=== PATIENT | male | born 1930 | race Caucasian/White ===

== ENCOUNTER 2016-11-19 11:44 | Emergency (ER) | payer MEDICARE, OTHER ==
[~2016-11-19] VITALS: Ht 172.7 cm; Wt 81.6 kg
[~2016-11-19 11:44] MED LIST: ACETAMINOPHEN PO; ALBUTEROL0.09 MG/A2 IH; ALBUTEROL0.09 MG/AC; ALLEGRA ALLERG180 M1 PO; AMIODARONE HCL400 MG PO; AMIODARONE200 MG PO; AMLODIPINE5 MG PO; AMOXICILLIN500 M2 PO; ASA; ASPIRIN81 M1 PO; CALCITRIOL0.25 MCG; CALCITRIOL0.25 MCG SL; CARDIZEM CD120 MG PO; CARDIZEM CD180 MG PO; CEPACOL MM; CLARITIN10 MG PO; CLINORIL200 MG PO; COUMADIN5 M2 PO; COZAAR25 MG PO; Carafate1 GM/10 ML PO; DELTASONE20 MG PO; DILTIAZEM120 MG; FLAGYL500 MG PO; FUROSEMIDE40 MG; HUMALOG100 U/ML SC; HUMULIN 70/30 703 M1 SC; HYDRALAZINE10 MG; HYDRALAZINE10 MG PO; IMDUR30 MG PO; IMDUR60 MG PO; IRON325 M1 PO; ISOSORBIDE MONO60 MG; KLOR-CON 88 MEQ; LASIX40 MG PO; LISINOPRIL10 MG PO; LOTRISONE30 ML PO; MEDROL DOSEPAK4 MG PO; METOPROLOL SUCC50 MG PO; MICRO-K EXTENCA8 MEQ PO; MYLANTA 150 ML150 M1 PO; NEURONTIN300 MG PO; NIFEREX150 MG PO; NITROSTAT0.4 MG PO; NITROTAB0.4 MG SL; NORVASC5 MG PO; NOVOLIN 70/30 710 ML SC; NOVOLOG 70/30 M10 ML SC; NOVOLOG 701 UNIT/0.0 SC; NOVOLOG MIX 70/10 ML SC; OMEPRAZOLE20 MG PO; OMNICEF300 MG PO; ONDANSETRON4 MG PO; OXYGEN NAS; PANTOPRAZOLE40 M1 PO; PERCOCET 325 MG1 TA2 PO; PERCOCET 325 MG1 TA5 PO; PLAVIX75 MG PO; PRAVACHOL40 MG PO; PRAVASTATIN SOD40 MG; PRAVASTATIN SOD40 MG PO; PRAZOSIN HCL2 MG PO; PRILOSEC40 MG PO; PROAIR HFA0.09 MG/AC INH; PROTONIX40 M1 PO; PROTONIX40 MG PO; Rocaltrol0.25 MCG PO; TOPROL XL25 MG PO; TOPROL XL50 MG PO; ULTRAM50 MG PO; WALKER; XANAX0.25 MG PO; ZOFRAN ODT4 MG SL; ZOLPIDEM10 MG PO; [UNRECOGNIZED DRUG - OTHER]; [UNRECOGNIZED DRUG - OTHER]
[2016-11-19 11:48] VITALS: BP 210/94
[2016-11-19 12:15] LABS: BASO % 0.3 % (0.0-1.0); HEMATOCRIT 36.6 % (42.0-52.0); HEMOGLOBIN 12.3 g/dl (14.0-18.0); IG # 0.1 10*3/uL (0.0-0.1); LYMPH # 0.5 10*3/uL (1.3-4.4); LYMPH % 3.7 % (27.0-41.0); MEAN CELL VOLUME 92.4 fl (80.0-94.0); MEAN CORPUSCULAR HGB 31.1 pg (27.0-31.0); MEAN CORPUSCULAR HGB CONC 33.6 g/dl (33.0-37.0); MEAN PLATELET VOLUME 9.9 fl (9.6-12.3); MONO # 1.2 10*3/uL (0.1-1.0); MONO % 8.4 % (3.0-9.0); NEUT # 12.8 10*3/uL (2.3-7.9); NEUT % 87.2 % (47.0-73.0); PLATELET COUNT AUTOMATED 204 10*3/uL (130-400); RED BLOOD COUNT 3.96 10*6/uL (4.50-5.90); RED CELL DISTRI WIDTH 15.2 % (0-14.5); WHITE BLOOD COUNT 14.6 10*3/uL (4.8-10.8)
[2016-11-19 12:28] LABS: POTASSIUM 4.5 mmol/L (3.5-5.1)
[2016-11-19 13:13] VITALS: BP 180/120
[2016-11-19 13:26] LABS: ALBUMIN 3.9 gm/dl (3.1-4.5); BILIRUBIN, TOTAL 1.4 mg/dl (0.2-1.0); POTASSIUM 4.3 mmol/L (3.5-5.1); TOTAL PROTEIN 7.5 gm/dL (6.4-8.2)
[2016-11-19 13:34] LABS: THYROID STIM HORMONE (HS) 1.35 uIU/ml (0.358-4.75)
[2016-11-19 14:38] VITALS: BP 166/97
[2016-11-19 14:51] VITALS: BP 174/71
[2016-11-19 14:58] LABS: BILIRUBIN NEGATIVE (NEGATIVE); BLOOD 2+ (NEGATIVE); CLARITY SL CLOUDY (CLEAR); COLOR YELLOW (YELLOW); GLUCOSE 1+ (NEGATIVE); KETONE NEGATIVE (NEGATIVE); LEUKO ESTERASE NEGATIVE (NEGATIVE); NITRITE NEGATIVE (NEGATIVE); PH 5.5 (5.0-9.0); PROTEIN 2+ (NEGATIVE); SPECIFIC GRAVITY 1.025 (1.005-1.030); UROBILINOGEN 0.2 E.U./dl (0.2-1.0)
[2016-11-19 15:05] LABS: BACTERIA 1+; RBC 21-30 rbc/hpf (0-2); URINE REFLEX COMMENT YES (NO)
[2016-11-19 15:08] VITALS: BP 149/60
== END 2016-11-19 15:30 | disposition short-term general hospital (02) ==
LOC: ED 11:44 → EDHOLD 14:12 → ED 14:12
PROVIDERS: Emergency Medicine
DX: A41.9 Sepsis, unspecified organism (principal); R41.0 Disorientation, unspecified; E16.2 Hypoglycemia, unspecified; Z90.49 Acquired absence of other specified parts of digestive tract; Z95.5 Presence of coronary angioplasty implant and graft; I12.9 Hypertensive chronic kidney disease with stage 1 through stage 4 chronic kidney disease, or unspecified chronic kidney disease; N18.3 Chronic kidney disease, stage 3 (moderate); J44.9 Chronic obstructive pulmonary disease, unspecified; Z86.73 Personal history of transient ischemic attack (TIA), and cerebral infarction without residual deficits; E11.649 Type 2 diabetes mellitus with hypoglycemia without coma; I48.91 Unspecified atrial fibrillation; I50.9 Heart failure, unspecified; Z79.82 Long term (current) use of aspirin

== ENCOUNTER 2016-12-25 11:15 | Emergency (ER) | payer MEDICARE, OTHER ==
[~2016-12-25] VITALS: Ht 172.7 cm; Wt 75.7 kg
[2016-12-25 12:15] LABS: BASO # 0.1 10*3/uL (0.0-0.1); BASO % 0.8 % (0.0-1.0); EOS # 0.2 10*3/uL (0.0-0.4); EOS % 3.8 % (1.0-4.0); HEMATOCRIT 32.7 % (42.0-52.0); HEMOGLOBIN 10.2 g/dl (14.0-18.0); IG # 0.1 10*3/uL (0.0-0.1); LYMPH # 0.8 10*3/uL (1.3-4.4); LYMPH % 12.7 % (27.0-41.0); MEAN CORPUSCULAR HGB 30.3 pg (27.0-31.0); MEAN CORPUSCULAR HGB CONC 31.2 g/dl (33.0-37.0); MEAN PLATELET VOLUME 9.7 fl (9.6-12.3); MONO # 0.7 10*3/uL (0.1-1.0); MONO % 11.5 % (3.0-9.0); NEUT # 4.5 10*3/uL (2.3-7.9); NEUT % 70.1 % (47.0-73.0); PLATELET COUNT AUTOMATED 212 10*3/uL (130-400); RED BLOOD COUNT 3.37 10*6/uL (4.50-5.90); RED CELL DISTRI WIDTH 15.9 % (0-14.5); WHITE BLOOD COUNT 6.4 10*3/uL (4.8-10.8)
[2016-12-25 12:22] LABS: INTERNATIONAL NORM RATIO 1.1 (2.0-3.5); PROTHROMBIN TIME 11.2 SECONDS (9.0-12.4)
[2016-12-25 12:30] LABS: ALBUMIN 3.1 gm/dl (3.1-4.5); BILIRUBIN, TOTAL 0.3 mg/dl (0.2-1.0); MAGNESIUM 1.9 mg/dL (1.5-2.1); POTASSIUM 5.4 mmol/L (3.5-5.1); TOTAL PROTEIN 6.5 gm/dL (6.4-8.2)
[2016-12-25 12:34] LABS: TROPONIN I 0.179 ng/ml (<0.045)
== END 2016-12-25 16:43 | disposition short-term general hospital (02) ==
LOC: ED 11:15
PROVIDERS: Nurse Practitioner Family
DX: J44.1 Chronic obstructive pulmonary disease with (acute) exacerbation (principal); N17.9 Acute kidney failure, unspecified; E87.5 Hyperkalemia; I48.91 Unspecified atrial fibrillation; N18.3 Chronic kidney disease, stage 3 (moderate); E11.9 Type 2 diabetes mellitus without complications; D64.9 Anemia, unspecified; Z98.42 Cataract extraction status, left eye; Z98.41 Cataract extraction status, right eye; Z90.49 Acquired absence of other specified parts of digestive tract; Z86.73 Personal history of transient ischemic attack (TIA), and cerebral infarction without residual deficits; Z95.5 Presence of coronary angioplasty implant and graft; Z79.82 Long term (current) use of aspirin; Z79.899 Other long term (current) drug therapy; Z99.81 Dependence on supplemental oxygen; Z88.2 Allergy status to sulfonamides

== ENCOUNTER 2017-01-16 12:44 | Inpatient (IN) | payer MEDICARE, OTHER ==
[~2017-01-16] VITALS: Ht 172.7 cm; Wt 77.4 kg
[2017-01-16 12:45] VITALS: BP 119/66
[2017-01-16 12:50] VITALS: BP 119/66
[2017-01-16 13:15] LABS: BASO % 0.4 % (0.0-1.0); EOS # 0.1 10*3/uL (0.0-0.4); EOS % 1.1 % (1.0-4.0); HEMATOCRIT 36.5 % (42.0-52.0); HEMOGLOBIN 11.7 g/dl (14.0-18.0); IG # 0.1 10*3/uL (0.0-0.1); LYMPH # 0.7 10*3/uL (1.3-4.4); LYMPH % 8.9 % (27.0-41.0); MEAN CELL VOLUME 94.3 fl (80.0-94.0); MEAN CORPUSCULAR HGB 30.2 pg (27.0-31.0); MEAN CORPUSCULAR HGB CONC 32.1 g/dl (33.0-37.0); MEAN PLATELET VOLUME 9.5 fl (9.6-12.3); MONO % 12.4 % (3.0-9.0); NEUT % 76.6 % (47.0-73.0); PLATELET COUNT AUTOMATED 225 10*3/uL (130-400); RED BLOOD COUNT 3.87 10*6/uL (4.50-5.90); RED CELL DISTRI WIDTH 15.2 % (0-14.5); WHITE BLOOD COUNT 7.9 10*3/uL (4.8-10.8)
[2017-01-16 13:25] LABS: PROTHROMBIN TIME 10.8 SECONDS (9.0-12.4)
[2017-01-16 13:34] LABS: ALBUMIN 3.2 gm/dl (3.1-4.5); ALKALINE PHOSPHATASE 115 U/L (45-117); BILIRUBIN, TOTAL 0.6 mg/dl (0.2-1.0); BUN 18 mg/dl (7-24); C-REACTIVE PROTEIN 4.65 MG/DL (0-0.3); CARBON DIOXIDE 29 mmol/L (21-32); CHLORIDE 105 mmol/L (98-107); CKMB 1.6 ng/ml (0.5-3.6); CPK 137 U/L (39-308); EST GLOM FILT AFRICAN AMERICAN 58 ml/min; GLUCOSE 60 mg/dL (65-99); POTASSIUM 4.4 mmol/L (3.5-5.1); SGOT/AST 24 IU/L (3-35); SGPT/ALT 17 U/L (12-78); SODIUM 140 mmol/L (136-145); TOTAL PROTEIN 6.7 gm/dL (6.4-8.2)
[2017-01-16 13:35] LABS: TROPONIN I < 0.015 ng/ml (<0.045)
[2017-01-16 15:24] LABS: BILIRUBIN NEGATIVE (NEGATIVE); BLOOD 1+ (NEGATIVE); CLARITY SL CLOUDY (CLEAR); COLOR YELLOW (YELLOW); GLUCOSE NEGATIVE (NEGATIVE); KETONE NEGATIVE (NEGATIVE); LEUKO ESTERASE 1+ (NEGATIVE); NITRITE NEGATIVE (NEGATIVE); PH 5.5 (5.0-9.0); PROTEIN 1+ (NEGATIVE); SPECIFIC GRAVITY <= 1.005 (1.005-1.030)
[2017-01-16] MEDS ORDERED: CLOPIDOGREL75 MG PO (15:25)
[2017-01-16 15:39] LABS: BACTERIA 1+; URINE REFLEX COMMENT YES (NO); WBC 16-20 wbc/hpf (0-5)
[2017-01-16 17:07] VITALS: BP 137/78
[2017-01-16 18:14] LABS: CKMB 2.1 ng/ml (0.5-3.6); CPK 139 U/L (39-308); TROPONIN I < 0.015 ng/ml (<0.045)
[2017-01-16] MEDS ORDERED: Rocaltrol0.25 MCG PO (18:40)
[2017-01-16 20:00] VITALS: BP 150/74
[2017-01-17 00:21] LABS: CKMB 1.8 ng/ml (0.5-3.6); CPK 135 U/L (39-308)
[2017-01-17 00:22] LABS: TROPONIN I < 0.015 ng/ml (<0.045)
[2017-01-17 06:09] LABS: URINE AMPHETAMINES < 1000 (1000ng/ml); URINE BARBITURATES < 200 (200ng/ml); URINE COCAINE < 300 (300ng/ml)
[2017-01-17 06:26] LABS: BASO % 0.7 % (0.0-1.0); EOS # 0.2 10*3/uL (0.0-0.4); EOS % 2.5 % (1.0-4.0); HEMATOCRIT 32.7 % (42.0-52.0); HEMOGLOBIN 10.7 g/dl (14.0-18.0); LYMPH # 0.8 10*3/uL (1.3-4.4); LYMPH % 13.6 % (27.0-41.0); MEAN CELL VOLUME 93.4 fl (80.0-94.0); MEAN CORPUSCULAR HGB 30.6 pg (27.0-31.0); MEAN CORPUSCULAR HGB CONC 32.7 g/dl (33.0-37.0); MEAN PLATELET VOLUME 10.1 fl (9.6-12.3); MONO # 0.7 10*3/uL (0.1-1.0); MONO % 12.1 % (3.0-9.0); NEUT # 4.3 10*3/uL (2.3-7.9); NEUT % 70.6 % (47.0-73.0); PLATELET COUNT AUTOMATED 209 10*3/uL (130-400); RED CELL DISTRI WIDTH 14.9 % (0-14.5)
[2017-01-17 06:42] LABS: CKMB 2.1 ng/ml (0.5-3.6); TROPONIN I 0.018 ng/ml (<0.045)
[2017-01-17 07:02] LABS: BUN 18 mg/dl (7-24); CARBON DIOXIDE 28 mmol/L (21-32); CHLORIDE 105 mmol/L (98-107); CHOLESTEROL 106 mg/dL (<200); EST GLOM FILT AFRICAN AMERICAN > 60 ml/min; FREE T4 0.86 ng/dl (0.76-1.46); GLUCOSE 153 mg/dL (65-99); HDL CHOLESTEROL 62 mg/dl (40-60); LDL CHOLESTEROL 31 mg/dL (9-159); MAGNESIUM 1.5 mg/dL (1.5-2.1); POTASSIUM 4.4 mmol/L (3.5-5.1); SODIUM 139 mmol/L (136-145); TRIGLYCERIDES 64 mg/dl (<150); VLDL CHOLESTEROL 13 mg/dL (6-40)
[2017-01-17 07:11] LABS: PROTHROMBIN TIME 10.8 SECONDS (9.0-12.4)
[2017-01-17 08:00] VITALS: BP 152/62
[2017-01-17 08:15] LABS: HEMOGLOBIN A1c 6.8 % (4.8-5.6)
[2017-01-17 09:14] LABS: FOLIC ACID 6.42 ng/mL (>5.38)
[2017-01-17 11:50] VITALS: BP 120/47
[2017-01-17 16:00] VITALS: BP 149/63
[2017-01-17 20:00] VITALS: BP 151/58
[2017-01-18] VITALS: BP 134/86
[2017-01-18 06:01] LABS: BASO # 0.1 10*3/uL (0.0-0.1); BASO % 1.1 % (0.0-1.0); EOS # 0.2 10*3/uL (0.0-0.4); EOS % 2.8 % (1.0-4.0); HEMATOCRIT 32.6 % (42.0-52.0); HEMOGLOBIN 10.7 g/dl (14.0-18.0); LYMPH # 0.7 10*3/uL (1.3-4.4); LYMPH % 11.3 % (27.0-41.0); MEAN CELL VOLUME 92.4 fl (80.0-94.0); MEAN CORPUSCULAR HGB 30.3 pg (27.0-31.0); MEAN CORPUSCULAR HGB CONC 32.8 g/dl (33.0-37.0); MEAN PLATELET VOLUME 9.9 fl (9.6-12.3); MONO # 0.8 10*3/uL (0.1-1.0); MONO % 12.8 % (3.0-9.0); NEUT # 4.4 10*3/uL (2.3-7.9); NEUT % 71.7 % (47.0-73.0); PLATELET COUNT AUTOMATED 245 10*3/uL (130-400); RED BLOOD COUNT 3.53 10*6/uL (4.50-5.90); RED CELL DISTRI WIDTH 14.7 % (0-14.5); WHITE BLOOD COUNT 6.2 10*3/uL (4.8-10.8)
[2017-01-18 06:20] LABS: BUN 16 mg/dl (7-24); CARBON DIOXIDE 26 mmol/L (21-32); CHLORIDE 108 mmol/L (98-107); EST GLOM FILT AFRICAN AMERICAN > 60 ml/min; GLUCOSE 127 mg/dL (65-99); POTASSIUM 4.1 mmol/L (3.5-5.1); SODIUM 143 mmol/L (136-145)
[2017-01-18 08:00] VITALS: BP 146/66
[2017-01-18 11:43] LABS: BILIRUBIN NEGATIVE (NEGATIVE); BLOOD NEGATIVE (NEGATIVE); CLARITY CLEAR (CLEAR); COLOR YELLOW (YELLOW); GLUCOSE NEGATIVE (NEGATIVE); KETONE NEGATIVE (NEGATIVE); LEUKO ESTERASE NEGATIVE (NEGATIVE); NITRITE NEGATIVE (NEGATIVE); PH 5.5 (5.0-9.0); PROTEIN NEGATIVE (NEGATIVE); SPECIFIC GRAVITY <= 1.005 (1.005-1.030); UROBILINOGEN 0.2 E.U./dl (0.2-1.0)
[2017-01-18 12:02] VITALS: BP 129/50
[2017-01-18 12:33] LABS: URINE REFLEX COMMENT NO (NO)
[2017-01-18] MEDS ORDERED: CIPRO500 MG PO ×2 (13:16→13:18)
== END 2017-01-18 14:35 | disposition home or self-care (01) | DRG 689 ==
LOC: ED 12:44 → 4E 15:57 → EDHOLD 15:57 → 4E 17:45
PROVIDERS: Emergency Medicine; Student in an Organized Health Care Education/Training Program
DX: N39.0 Urinary tract infection, site not specified (principal); G93.41 Metabolic encephalopathy; E11.22 Type 2 diabetes mellitus with diabetic chronic kidney disease; I50.32 Chronic diastolic (congestive) heart failure; N18.3 Chronic kidney disease, stage 3 (moderate); D64.9 Anemia, unspecified; J44.9 Chronic obstructive pulmonary disease, unspecified; I48.2 Chronic atrial fibrillation; Z99.81 Dependence on supplemental oxygen; I25.2 Old myocardial infarction; Z90.49 Acquired absence of other specified parts of digestive tract; Z95.5 Presence of coronary angioplasty implant and graft; Z98.42 Cataract extraction status, left eye; Z86.73 Personal history of transient ischemic attack (TIA), and cerebral infarction without residual deficits; Z98.41 Cataract extraction status, right eye; Z79.82 Long term (current) use of aspirin; Z79.4 Long term (current) use of insulin; Z79.1 Long term (current) use of non-steroidal anti-inflammatories (NSAID); Z79.899 Other long term (current) drug therapy

== ENCOUNTER 2017-01-25 12:33 | Inpatient (IN) | payer MEDICARE ==
[~2017-01-25] VITALS: Ht 172.7 cm; Wt 80.7 kg
--- NOTE | ~2017-01-25 | CON ---
[place], [place] REPORT OF CONSULTATION [facility] [id number] UNIT #: [id number] ROOM: 410 DOCTOR: VIRGIE WARNER BIRTHDATE: [birth year] DOS: 01/27/2017 HISTORY OF PRESENT ILLNESS: He is an 86-year-old male who was admitted to the hospital on 01/25/2017 following a fall at home. When he arrived at the Emergency Room, it was found that he did have a low blood sugar. He was confused and combative when he arrived and was brought here for evaluation by his son. PAST MEDICAL HISTORY: Atrial fib. He does have a history of a chronic subdural hematoma, chronic kidney disease, COPD, CVA, heart failure, type 2 diabetes and a history of non-ST elevated [place]. MENTAL STATUS: He is alert and oriented x 3. Mood is bright. Affect is appropriate. His speech rate and pattern are regular. He shows no signs of florencio or hypomania. He denies any audiovisual hallucinations. No delusions or paranoia. His processing is good. He is conversant. group home and short term memory appeared to be intact. He reports that he is eating and sleeping just fine. He is ready to go home. He is able to tell me he is from [place]. He is able to tell me how long he has been here. He lives next to his son who he says comes in and checks on him throughout the day. He says he has a history of syncopal episodes about 25 times over the past few years, the most recent prior to this one being 3-4 weeks ago, which he was in the hospital for that time too. Reviewing his labs, his vitamin D level is low at 12.9, otherwise his labs seem to be okay. DIAGNOSIS: Vitamin D deficiency. PLAN: We will start a vitamin D supplement. He has no indications at this time of dementia and has had no agitation since he has been here. Virgie Warner NP CM:CONSTR:REPORT OF CONSULTATION [id number] 01/28/17 0019 interface
[~2017-01-25 12:33] MED LIST changes: +CIPRO500 MG PO; +CLOPIDOGREL75 MG PO
[2017-01-25 12:49] VITALS: BP 131/70
[2017-01-25 13:20] LABS: BASO % 0.2 % (0.0-1.0); EOS % 0.1 % (1.0-4.0); HEMATOCRIT 33.4 % (42.0-52.0); HEMOGLOBIN 10.8 g/dl (14.0-18.0); IG # 0.1 10*3/uL (0.0-0.1); LYMPH # 0.6 10*3/uL (1.3-4.4); MEAN CELL VOLUME 92.5 fl (80.0-94.0); MEAN CORPUSCULAR HGB 29.9 pg (27.0-31.0); MEAN CORPUSCULAR HGB CONC 32.3 g/dl (33.0-37.0); MEAN PLATELET VOLUME 9.1 fl (9.6-12.3); MONO # 1.1 10*3/uL (0.1-1.0); MONO % 7.8 % (3.0-9.0); NEUT # 12.5 10*3/uL (2.3-7.9); NEUT % 87.4 % (47.0-73.0); PLATELET COUNT AUTOMATED 335 10*3/uL (130-400); RED BLOOD COUNT 3.61 10*6/uL (4.50-5.90); RED CELL DISTRI WIDTH 14.6 % (0-14.5); WHITE BLOOD COUNT 14.3 10*3/uL (4.8-10.8)
[2017-01-25 13:28] LABS: INTERNATIONAL NORM RATIO 1.1 (2.0-3.5); PROTHROMBIN TIME 11.4 SECONDS (9.0-12.4)
[2017-01-25 13:36] LABS: ALBUMIN 3.1 gm/dl (3.1-4.5); BILIRUBIN, TOTAL 0.5 mg/dl (0.2-1.0); C-REACTIVE PROTEIN 5.33 MG/DL (0-0.3); CKMB 3.1 ng/ml (0.5-3.6); MAGNESIUM 1.8 mg/dL (1.5-2.1); POTASSIUM 4.6 mmol/L (3.5-5.1); TOTAL PROTEIN 6.8 gm/dL (6.4-8.2); TROPONIN I 0.015 ng/ml (<0.045)
[2017-01-25 14:05] LABS: BILIRUBIN NEGATIVE (NEGATIVE); BLOOD NEGATIVE (NEGATIVE); CLARITY CLEAR (CLEAR); COLOR YELLOW (YELLOW); GLUCOSE NEGATIVE (NEGATIVE); KETONE NEGATIVE (NEGATIVE); LEUKO ESTERASE NEGATIVE (NEGATIVE); NITRITE NEGATIVE (NEGATIVE); PROTEIN TRACE (NEGATIVE); UROBILINOGEN 0.2 E.U./dl (0.2-1.0)
[2017-01-25 14:15] LABS: BACTERIA TRACE; RBC 0-2 rbc/hpf (0-2); URINE REFLEX COMMENT NO (NO); WBC 0-2 wbc/hpf (0-5)
[2017-01-25 14:37] VITALS: BP 145/87
[2017-01-25 16:16] VITALS: BP 116/54
[2017-01-25] MEDS ORDERED: FLOMAX0.4 MG PO (16:42)
[2017-01-25 17:15] VITALS: BP 140/86
[2017-01-25 17:30] VITALS: BP 140/86
[2017-01-25 18:22] LABS: CKMB 3.8 ng/ml (0.5-3.6); TROPONIN I 0.017 ng/ml (<0.045)
[2017-01-25 20:00] VITALS: BP 142/64
[2017-01-26] VITALS: BP 155/70
[2017-01-26 00:57] LABS: CKMB 3.5 ng/ml (0.5-3.6); TROPONIN I 0.021 ng/ml (<0.045)
[2017-01-26 06:50] LABS: BASO # 0.1 10*3/uL (0.0-0.1); BASO % 0.5 % (0.0-1.0); EOS # 0.1 10*3/uL (0.0-0.4); EOS % 1.3 % (1.0-4.0); HEMATOCRIT 33.7 % (42.0-52.0); IG # 0.1 10*3/uL (0.0-0.1); LYMPH # 0.9 10*3/uL (1.3-4.4); LYMPH % 8.7 % (27.0-41.0); MEAN CELL VOLUME 92.1 fl (80.0-94.0); MEAN CORPUSCULAR HGB 30.1 pg (27.0-31.0); MEAN CORPUSCULAR HGB CONC 32.6 g/dl (33.0-37.0); MEAN PLATELET VOLUME 9.4 fl (9.6-12.3); MONO # 1.1 10*3/uL (0.1-1.0); NEUT # 7.7 10*3/uL (2.3-7.9); NEUT % 77.8 % (47.0-73.0); PLATELET COUNT AUTOMATED 335 10*3/uL (130-400); RED BLOOD COUNT 3.66 10*6/uL (4.50-5.90); RED CELL DISTRI WIDTH 14.6 % (0-14.5); WHITE BLOOD COUNT 9.9 10*3/uL (4.8-10.8)
[2017-01-26 07:00] LABS: HEMOGLOBIN A1c 6.7 % (4.8-5.6)
[2017-01-26 07:04] LABS: CKMB 3.7 ng/ml (0.5-3.6); TROPONIN I 0.023 ng/ml (<0.045)
[2017-01-26 07:30] LABS: POTASSIUM 4.6 mmol/L (3.5-5.1)
[2017-01-26 07:46] LABS: FOLIC ACID 6.62 ng/mL (>5.38); VITAMIN D, 25-HYDROXY 12.9 ng/mL (30-100)
[2017-01-26 07:58] LABS: FREE T4 0.99 ng/dl (0.76-1.46); PHOSPHOROUS 2.8 mg/dL (2.5-4.9); THYROID STIM HORMONE (HS) 1.2 uIU/ml (0.358-4.75)
[2017-01-26 08:00] VITALS: BP 128/68
[2017-01-26 12:00] VITALS: BP 126/86
[2017-01-26 15:56] VITALS: BP 135/78
[2017-01-26 20:00] VITALS: BP 132/88
[2017-01-27] VITALS: BP 139/68
[2017-01-27 06:40] LABS: BASO # 0.1 10*3/uL (0.0-0.1); BASO % 0.4 % (0.0-1.0); EOS # 0.3 10*3/uL (0.0-0.4); EOS % 2.2 % (1.0-4.0); HEMATOCRIT 32.3 % (42.0-52.0); HEMOGLOBIN 10.5 g/dl (14.0-18.0); IG # 0.1 10*3/uL (0.0-0.1); LYMPH % 8.8 % (27.0-41.0); MEAN CELL VOLUME 91.2 fl (80.0-94.0); MEAN CORPUSCULAR HGB 29.7 pg (27.0-31.0); MEAN CORPUSCULAR HGB CONC 32.5 g/dl (33.0-37.0); MEAN PLATELET VOLUME 9.8 fl (9.6-12.3); MONO # 1.2 10*3/uL (0.1-1.0); NEUT # 8.6 10*3/uL (2.3-7.9); NEUT % 76.9 % (47.0-73.0); PLATELET COUNT AUTOMATED 311 10*3/uL (130-400); RED BLOOD COUNT 3.54 10*6/uL (4.50-5.90); RED CELL DISTRI WIDTH 14.6 % (0-14.5); WHITE BLOOD COUNT 11.2 10*3/uL (4.8-10.8)
[2017-01-27 06:49] LABS: BILIRUBIN, TOTAL 0.6 mg/dl (0.2-1.0); POTASSIUM 4.1 mmol/L (3.5-5.1); TOTAL PROTEIN 6.2 gm/dL (6.4-8.2)
[2017-01-27 08:00] VITALS: BP 154/79
[2017-01-27 12:00] VITALS: BP 107/77
== END 2017-01-27 14:33 | disposition home or self-care (01) | DRG 637 ==
LOC: ED 12:33 → 4E 14:47 → EDHOLD 14:47 → 4E 16:04
PROVIDERS: Emergency Medicine; Internal Medicine; Student in an Organized Health Care Education/Training Program
DX: E11.649 Type 2 diabetes mellitus with hypoglycemia without coma (principal); G93.41 Metabolic encephalopathy; I62.03 Nontraumatic chronic subdural hemorrhage; E44.0 Moderate protein-calorie malnutrition; R65.10 Systemic inflammatory response syndrome (SIRS) of non-infectious origin without acute organ dysfunction; I50.32 Chronic diastolic (congestive) heart failure; E11.22 Type 2 diabetes mellitus with diabetic chronic kidney disease; I48.91 Unspecified atrial fibrillation; R56.9 Unspecified convulsions; W18.30XA Fall on same level, unspecified, initial encounter; S09.90XA Unspecified injury of head, initial encounter; N18.3 Chronic kidney disease, stage 3 (moderate); D64.9 Anemia, unspecified; E55.9 Vitamin D deficiency, unspecified; J44.9 Chronic obstructive pulmonary disease, unspecified; Z86.73 Personal history of transient ischemic attack (TIA), and cerebral infarction without residual deficits; I25.2 Old myocardial infarction; Z98.42 Cataract extraction status, left eye; Z98.41 Cataract extraction status, right eye; Z90.49 Acquired absence of other specified parts of digestive tract; Z95.5 Presence of coronary angioplasty implant and graft; Z79.82 Long term (current) use of aspirin; Z79.899 Other long term (current) drug therapy; Z99.81 Dependence on supplemental oxygen; Z68.26 Body mass index [BMI] 26.0-26.9, adult; Y93.89 Activity, other specified; Y92.092 Bedroom in other non-institutional residence as the place of occurrence of the external cause; Y99.8 Other external cause status

== ENCOUNTER 2017-03-05 18:22 | Emergency (ER) | payer MEDICARE ==
[~2017-03-05] VITALS: Wt 77.1 kg
[~2017-03-05 18:22] MED LIST changes: +FLOMAX0.4 MG PO
[2017-03-05 18:56] LABS: BASO % 0.2 % (0.0-1.0); HEMATOCRIT 40.3 % (42.0-52.0); HEMOGLOBIN 13.3 g/dl (14.0-18.0); IG # 0.1 10*3/uL (0.0-0.1); LYMPH # 0.7 10*3/uL (1.3-4.4); LYMPH % 4.8 % (27.0-41.0); MEAN CELL VOLUME 89.6 fl (80.0-94.0); MEAN CORPUSCULAR HGB 29.6 pg (27.0-31.0); MEAN PLATELET VOLUME 9.7 fl (9.6-12.3); MONO # 1.5 10*3/uL (0.1-1.0); NEUT # 12.2 10*3/uL (2.3-7.9); NEUT % 84.4 % (47.0-73.0); PLATELET COUNT AUTOMATED 231 10*3/uL (130-400); RED CELL DISTRI WIDTH 14.9 % (0-14.5); WHITE BLOOD COUNT 14.4 10*3/uL (4.8-10.8)
[2017-03-05 19:12] LABS: ALBUMIN 3.8 gm/dl (3.1-4.5); BILIRUBIN, TOTAL 1.3 mg/dl (0.2-1.0); POTASSIUM 4.5 mmol/L (3.5-5.1); TOTAL PROTEIN 7.6 gm/dL (6.4-8.2)
[2017-03-05 20:26] LABS: INTERNATIONAL NORM RATIO 1.1 (2.0-3.5); PROTHROMBIN TIME 11.2 SECONDS (9.0-12.4)
[2017-03-05 20:33] LABS: MAGNESIUM 2.3 mg/dL (1.5-2.1)
[2017-03-05 20:39] LABS: HEMOGLOBIN A1c 6.2 % (4.8-5.6)
[2017-03-05 20:45] LABS: BILIRUBIN NEGATIVE (NEGATIVE); BLOOD 3+ (NEGATIVE); CLARITY CLEAR (CLEAR); COLOR YELLOW (YELLOW); GLUCOSE NEGATIVE (NEGATIVE); KETONE NEGATIVE (NEGATIVE); LEUKO ESTERASE NEGATIVE (NEGATIVE); NITRITE NEGATIVE (NEGATIVE); PROTEIN 1+ (NEGATIVE); UROBILINOGEN 0.2 E.U./dl (0.2-1.0)
[2017-03-05 20:54] LABS: WBC 0-2 wbc/hpf (0-5)
[2017-03-05 20:55] LABS: HYALINE CAST 0-2; URINE REFLEX COMMENT YES (NO)
[2017-03-05 22:31] LABS: LA>2 REFLEX 2 HR DRAW NOW
== END 2017-03-05 23:32 | disposition short-term general hospital (02) ==
LOC: ED 18:22
PROVIDERS: Emergency Medicine; Emergency Medicine Emergency Medical Services
DX: S01.91XA Laceration without foreign body of unspecified part of head, initial encounter (principal); S80.812A Abrasion, left lower leg, initial encounter; S80.811A Abrasion, right lower leg, initial encounter; S40.812A Abrasion of left upper arm, initial encounter; S40.811A Abrasion of right upper arm, initial encounter; R56.9 Unspecified convulsions; E11.649 Type 2 diabetes mellitus with hypoglycemia without coma; E11.22 Type 2 diabetes mellitus with diabetic chronic kidney disease; N18.3 Chronic kidney disease, stage 3 (moderate); I50.30 Unspecified diastolic (congestive) heart failure; Z79.4 Long term (current) use of insulin; Z86.73 Personal history of transient ischemic attack (TIA), and cerebral infarction without residual deficits; I48.91 Unspecified atrial fibrillation; J44.9 Chronic obstructive pulmonary disease, unspecified; Z85.01 Personal history of malignant neoplasm of esophagus; Z79.82 Long term (current) use of aspirin; Z79.899 Other long term (current) drug therapy; X58.XXXA Exposure to other specified factors, initial encounter; Y93.89 Activity, other specified; Y92.89 Other specified places as the place of occurrence of the external cause; Y99.8 Other external cause status